=== PATIENT | female | born 1985 | race Caucasian/White ===

== ENCOUNTER 2017-04-07 16:54 | Inpatient (IN) | payer MEDICAID ==
[2017-04-07 16:55] VITALS: BMI 66.9
[2017-04-07] MEDS ORDERED: Albuterol-Ipratrop 3 mg / 0.5 (3 ml) UD INH STA (17:15)
[2017-04-07 17:49] LABS: CHLORIDE 97 mmol/L (98-107); SODIUM 134 mmol/L (132-148)
[2017-04-07 17:50] LABS: POTASSIUM 4.4 mmol/L (3.6-5.2)
[2017-04-07 17:52] LABS: ALB/GLOB RATIO 1.1 (1.0-2.1); ALKALINE PHOSPHATASE 57 U/L (38-126); ALT/SGPT 32 U/L (9-52); AST/SGOT 30 U/L (14-36); BILIRUBIN,TOTAL 0.8 mg/dL (0.2-1.3); BLOOD UREA NITROGEN 7 mg/dL (7-17); CARBON DIOXIDE 27 mmol/L (22-30); GFR AFRICAN-AMERICAN > 60; GLUCOSE,RANDOM 92 mg/dL (65-105); TOTAL PROTEIN 7.9 g/dL (6.3-8.3)
[2017-04-07] MEDS ORDERED: Albuterol-Ipratrop 3 mg / 0.5 (3 ml) UD ONE ×2 (18:02→18:55)
[2017-04-07] MEDS ORDERED: Magnesium Sulfate 1 gm in D5W 2 GM/200 ML BAG IVPB ONE (18:05)
[2017-04-07] MEDS: Magnesium Sulfate 1 gm in D5W 1 GM/100 ML BAG IVPB SCH ×2 (18:18→18:19)
[2017-04-07] MEDS ORDERED: Albuterol 0.083% Inhal Sol (2.5 mg/3 mL) UD INH STA (18:34)
[2017-04-07 18:42] LABS: BASO # 0.1 K/uL (0.0-0.2); BASO % 0.8 % (0.0-2.0); EOS # 0.3 K/uL (0.0-0.7); EOS % 3.7 % (0.0-4.0); HEMATOCRIT 32.1 % (34.0-47.0); LYMPH # 1.6 K/uL (1.0-4.3); LYMPH % 20.7 % (20.0-40.0); MEAN CELL VOLUME 78.6 fL (81.0-99.0); MEAN CORPUSCULAR HEMOGLOBIN 24.9 pg (27.0-31.0); MEAN CORPUSCULAR HGB CONC 31.7 g/dL (33.0-37.0); MEAN PLATELET VOLUME 8.4 fL (7.2-11.7); MONO # 0.6 K/uL (0.0-0.8); MONO % 7.7 % (0.0-10.0); RED CELL DISTRIBUTION WIDTH 16.7 % (11.5-14.5); WHITE BLOOD COUNT 7.5 K/uL (4.8-10.8)
--- NOTE | 2017-04-07 18:46 | RAD ---
PROCEDURE: CHEST RADIOGRAPH, 1 VIEW HISTORY: SOB COMPARISON: None available. FINDINGS: LUNGS: Evaluation limited due to patient body habitus. No infiltrate. PLEURA: No pneumothorax or pleural fluid seen. CARDIOVASCULAR: Normal. OSSEOUS STRUCTURES: No significant abnormalities. VISUALIZED UPPER ABDOMEN: Normal. OTHER FINDINGS: None. IMPRESSION: Normal limited examination.
--- NOTE | 2017-04-07 19:02 | C.PDOC ---
History Of Present Illness 31 y/o female, with PMHx of asthma, presents to ED for evaluation of persistent dry cough, and shortness of breath for the last 2 days. Notes using Albuterol treatment at home with minimal relief. Notes she was last admitted for asthma 1 year ago. No history of intubation. Denies chest pain, headache, fever, chills, back pain, nausea, vomiting, diarrhea, abdominal pain, lower extremity pain/ swelling, or recent travel. Chief Complaint (Nursing): Respiratory Distress History Per: Patient History/Exam Limitations: no limitations Onset/Duration Of Symptoms: Days (2) Current Symptoms Are (Timing): Still Present Exacerbating Factor(s): Coughing Current Respiratory Medications: See Home Med List Associated Symptoms: denies: Fever, Chills, Sweating, Chest Pain, Bloody Cough, Heart Racing, Leg/Calf Pain, Ankle/Leg Swelling, Dizziness, Light-headedness, Anxiety, Tingling In Hands Or Face, Musle Spasms In Hands Or Feet Recent travel outside of the [place]: No Additional History Per: Patient Past Medical History Reviewed: Historical Data, Nursing Documentation, Vital Signs Vital Signs: Last Vital Signs Temp 98.9 F 04/07/17 23:35 Pulse 108 H 04/08/17 12:14 Resp 20 04/07/17 23:35 BP 135/78 04/07/17 23:35 Pulse Ox 93 L 04/07/17 23:35 - Medical History PMH: Asthma, Depression, HTN Denies: Diabetes, Hepatitis, HIV, Chronic Kidney Disease, Seizures, Sexually Transmitted Disease - [facility] Procedures GROUP PSYCHOTHERAPY (02/22/16) INDIVIDUAL PSYCHOTHERAPY, SUPPORTIVE (02/22/16) INTRODUCTION OF SERUM/TOX/VACCINE INTO MUSCLE, PERC APPROACH (10/31/15) MEDICATION MANAGEMENT (02/22/16) Family History: States: Unknown Family Hx - Social History Hx Tobacco Use: No Hx Alcohol Use: No Hx Substance Use: No - Immunization History Hx Tetanus Toxoid Vaccination: No Hx Influenza Vaccination: No Hx Pneumococcal Vaccination: Yes Review Of Systems Except As Marked, All Systems Reviewed And Found Negative. Constitutional: Negative for: Fever, Chills Cardiovascular: Negative for: Chest Pain, Palpitations, Edema, Light Headedness Respiratory: Positive for: Cough, Shortness of Breath. Negative for: Hemoptysis , Sputum Gastrointestinal: Negative for: Nausea, Vomiting, Abdominal Pain Neurological: Negative for: Headache, Dizziness Physical Exam - Physical Exam Appears: Non-toxic, No Acute Distress, Other (morbidly obese) Skin: Normal Color, Warm, Dry Head: Atraumatic, Normacephalic Eye(s): bilateral: Normal Inspection Oral Mucosa: Moist Neck: Normal ROM, Supple Cardiovascular: Rhythm Regular, No Murmur Respiratory: Decreased Breath Sounds (mildly diminished breath sounds), No Rales , No Rhonchi, No Wheezing, Other (dry cough) Gastrointestinal/Abdominal: Soft, No Tenderness Extremity: Normal ROM, No Pedal Edema Neurological/Psych: Oriented x3, Normal Speech, Normal Cognition ED Course And Treatment - Laboratory Results Result Diagrams: 04/07/17 18:37 04/07/17 17:34 O2 Sat by Pulse Oximetry: 99 (RA) Pulse Ox Interpretation: Normal Progress Note: Blood work, EKG, CXR ordered and reviewed. Patient was given Solu -Medrol, Magnesium Sulfate, and Albuterol treatment. Case discussed with Dr. Vijaya Buchanan, reservations sales supervisor medicine, who accepts pt for telemetry. Disposition - Disposition Disposition: HOSPITALIZED Disposition Time: 18:20 Condition: STABLE - Clinical Impression Clinical Impression: Exacerbation of asthma - Scribe Statement The provider has reviewed the documentation as recorded by the Scribe Marcelle Buchanan All medical record entries made by the Scribe were at my direction and personally dictated by me. I have reviewed the chart and agree that the record accurately reflects my personal performance of the history, physical exam, medical decision making, and the department course for this patient. I have also personally directed, reviewed, and agree with the discharge instructions and disposition.
[2017-04-07] MEDS: MethylPREDNISolone 40 mg Vial IVP SCH (21:53)
[2017-04-07] MEDS: Azithromycin 500 MG in Sodium Chloride 0.9% 250 ML IVPB SCH (22:29)
[2017-04-07] MEDS: guaiFENesin DM 200 mg-20 mg/10 ml UD PO PRN ×2 (22:37→22:56)
--- NOTE | 2017-04-07 23:25 | CP.PCM.HP ---
Past Patient History - Infectious Disease Hx of Infectious Diseases: None - Past Medical History & Family History Past Medical History?: No - Past Social History Smoking Status: Light Smoker < 10 Cigarettes Daily - CARDIAC Hx Hypertension: Yes - PULMONARY Hx Asthma: Yes - NEUROLOGICAL Hx Seizures: No - HEENT Other/Comment: wears glasses to see - RENAL Hx Chronic Kidney Disease: No - ENDOCRINE/METABOLIC Hx Endocrine Disorders: No - HEMATOLOGICAL/ONCOLOGICAL Hx Human Immunodeficiency Virus (HIV): No - INTEGUMENTARY Hx Dermatological Problems: No - MUSCULOSKELETAL/RHEUMATOLOGICAL Hx Musculoskeletal Disorders: No Hx Falls: No - GASTROINTESTINAL Hx Gastrointestinal Disorders: No - GENITOURINARY/GYNECOLOGICAL Hx Sexually Transmitted Disorders: No - PSYCHIATRIC Hx Depression: Yes Hx Substance Use: No - SURGICAL HISTORY Hx Surgeries: No - ANESTHESIA Hx Anesthesia: No Meds Allergies/Adverse Reactions: Allergies Allergy/AdvReac Type Severity Reaction Status Date / Time banana Allergy Intermediate URTICARIA Verified 06/29/16 14:39 ORANGE Allergy Intermediate URTICARIA Verified 06/29/16 14:39 shrimp Allergy RASH Verified 02/22/16 11:54 watermelon Allergy RASH Verified 02/22/16 11:54 SEAFOOD Allergy Severe ANAPHYLAXIS Uncoded 06/29/16 14:39 Results - Vital Signs Recent Vital Signs: Last Vital Signs Temp 98.9 F 04/07/17 20:54 Pulse 112 H 04/07/17 20:54 Resp 18 04/07/17 20:54 BP 173/90 H 04/07/17 20:54 Pulse Ox 100 04/07/17 20:54 - Labs Result Diagrams: 04/07/17 18:37 04/07/17 17:34 Labs: Laboratory Results - last 24 hr 04/07/17 04/07/17 04/07/17 17:34 17:38 18:37 WBC 7.5 RBC 4.08 Hgb 10.2 L Hct 32.1 L MCV 78.6 L D MCH 24.9 L MCHC 31.7 L RDW 16.7 H Plt Count 300 MPV 8.4 Neut % (Auto) 67.1 Lymph % (Auto) 20.7 [place] % (Auto) 7.7 Eos % (Auto) 3.7 Baso % (Auto) 0.8 Neut # 5.0 Lymph # 1.6 [place] # 0.6 Eos # 0.3 Baso # 0.1 Sodium 134 Potassium 4.4 Chloride 97 L Carbon Dioxide 27 Anion Gap 14 BUN 7 Creatinine 0.7 Est GFR ( Amer) > 60 Est GFR (Non-Af Amer) > 60 Random Glucose 92 Calcium 9.0 Total Bilirubin 0.8 AST 30 ALT 32 Alkaline Phosphatase 57 NT-Pro-B Natriuret Pep 92.4 Total Protein 7.9 Albumin 4.2 Globulin 3.7 Albumin/Globulin Ratio 1.1 Influenza Typ A,B (EIA) Negative for flu a/b
[2017-04-08] MEDS: Albuterol-Ipratrop 3 mg / 0.5 (3 ml) UD INH SCH ×4 (01:05→19:05)
[2017-04-08] MEDS: MethylPREDNISolone 40 mg Vial IVP SCH ×3 (05:40→21:34)
[2017-04-08] MEDS: guaiFENesin DM 200 mg-20 mg/10 ml UD PO PRN (05:43)
[2017-04-08] MEDS ORDERED: Albuterol-Ipratrop 3 mg / 0.5 (3 ml) UD INH STA (06:08)
[2017-04-08] MEDS: Fluticasone-Salmeterol 250-50mcg Diskus INH SCH ×2 (08:53→19:05)
[2017-04-08] MEDS: Pantoprazole 40 mg EC Tab PO SCH (10:34)
[2017-04-08] MEDS: Enoxaparin 40 mg Syringe SC SCH (10:34)
--- NOTE | 2017-04-08 15:48 | CP.PCM.CON ---
Past Patient History - Infectious Disease Hx of Infectious Diseases: None - Past Medical History & Family History Past Medical History?: No - Past Social History Smoking Status: Light Smoker < 10 Cigarettes Daily - CARDIAC Hx Hypertension: Yes - PULMONARY Hx Asthma: Yes - NEUROLOGICAL Hx Seizures: No - HEENT Other/Comment: wears glasses to see - RENAL Hx Chronic Kidney Disease: No - ENDOCRINE/METABOLIC Hx Endocrine Disorders: No - HEMATOLOGICAL/ONCOLOGICAL Hx Human Immunodeficiency Virus (HIV): No - INTEGUMENTARY Hx Dermatological Problems: No - MUSCULOSKELETAL/RHEUMATOLOGICAL Hx Musculoskeletal Disorders: No Hx Falls: No - GASTROINTESTINAL Hx Gastrointestinal Disorders: No - GENITOURINARY/GYNECOLOGICAL Hx Sexually Transmitted Disorders: No - PSYCHIATRIC Hx Depression: Yes Hx Substance Use: No - SURGICAL HISTORY Hx Surgeries: No - ANESTHESIA Hx Anesthesia: No Meds Allergies/Adverse Reactions: Allergies Allergy/AdvReac Type Severity Reaction Status Date / Time banana Allergy Intermediate URTICARIA Verified 06/29/16 14:39 ORANGE Allergy Intermediate URTICARIA Verified 06/29/16 14:39 shrimp Allergy RASH Verified 02/22/16 11:54 watermelon Allergy RASH Verified 02/22/16 11:54 SEAFOOD Allergy Severe ANAPHYLAXIS Uncoded 06/29/16 14:39 - Medications Medications: Current Medications Albuterol/Ipratropium (Duoneb 3 Mg/0.5 Mg (3 Ml) Ud) 3 ml INH RQ6 [facility] Last Admin: 04/08/17 13:33 Dose: 3 ml Amlodipine Besylate (Norvasc) 10 mg PO DAILY [facility] Last Admin: 04/08/17 10:34 Dose: 10 mg Enoxaparin Sodium (Lovenox) 40 mg SC DAILY [facility] Last Admin: 04/08/17 10:34 Dose: Not Given Guaifenesin/Dextromethorphan (Robitussin Dm) 10 ml PO Q4H PRN PRN Reason: Cough and congestion Last Admin: 04/08/17 05:43 Dose: 10 ml Hydrochlorothiazide (Microzide) 12.5 mg PO DAILY [facility] Last Admin: 04/08/17 10:34 Dose: 12.5 mg Azithromycin 500 mg/ Sodium (Chloride) 250 mls @ 250 mls/hr IVPB Q24H [facility] Last Admin: 04/07/17 22:29 Dose: 250 mls/hr Ceftriaxone Sodium 1 gm/ (Sodium Chloride) 100 mls @ 100 mls/hr IVPB Q24H [facility] Last Admin: 04/07/17 22:29 Dose: 100 mls/hr Lisinopril (Zestril) 20 mg PO DAILY [facility] Last Admin: 04/08/17 10:34 Dose: 20 mg Methylprednisolone (Solu-Medrol) 60 mg IVP Q8 [facility] Last Admin: 04/08/17 13:31 Dose: 60 mg Montelukast Sodium (Singulair) 10 mg PO HS [facility] Last Admin: 04/07/17 21:53 Dose: 10 mg Pantoprazole Sodium (Protonix Ec Tab) 40 mg PO DAILY [facility] Last Admin: 04/08/17 10:34 Dose: 40 mg Fluticasone/Salmeterol (Advair Diskus 250/50) 1 puff INH RQ12 [facility] Last Admin: 04/08/17 08:53 Dose: 1 puff Results - Vital Signs Recent Vital Signs: Last Vital Signs Temp 98.9 F 04/07/17 23:35 Pulse 108 H 04/08/17 12:14 Resp 20 04/07/17 23:35 BP 135/78 04/07/17 23:35 Pulse Ox 99 04/08/17 12:36 - Labs Result Diagrams: 04/07/17 18:37 04/07/17 17:34 Labs: Laboratory Results - last 24 hr 04/07/17 04/07/17 04/07/17 17:34 17:38 18:37 WBC 7.5 RBC 4.08 Hgb 10.2 L Hct 32.1 L MCV 78.6 L D MCH 24.9 L MCHC 31.7 L RDW 16.7 H Plt Count 300 MPV 8.4 Neut % (Auto) 67.1 Lymph % (Auto) 20.7 [place] % (Auto) 7.7 Eos % (Auto) 3.7 Baso % (Auto) 0.8 Neut # 5.0 Lymph # 1.6 [place] # 0.6 Eos # 0.3 Baso # 0.1 Sodium 134 Potassium 4.4 Chloride 97 L Carbon Dioxide 27 Anion Gap 14 BUN 7 Creatinine 0.7 Est GFR ( Amer) > 60 Est GFR (Non-Af Amer) > 60 Random Glucose 92 Calcium 9.0 Total Bilirubin 0.8 AST 30 ALT 32 Alkaline Phosphatase 57 NT-Pro-B Natriuret Pep 92.4 Total Protein 7.9 Albumin 4.2 Globulin 3.7 Albumin/Globulin Ratio 1.1 Influenza Typ A,B (EIA) Negative for flu a/b
--- NOTE | 2017-04-08 19:00 | CP.PCM.PN ---
Subjective - Date & Time of Evaluation Date of Evaluation: 04/08/17 Time of Evaluation: 11:40 - Subjective Subjective: clinically same Objective - Vital Signs/Intake and Output Vital Signs (last 24 hours): Temp Pulse Resp BP Pulse Ox 98.2 F 112 H 24 128/79 97 04/08/17 15:31 04/08/17 15:31 04/08/17 15:31 04/08/17 15:31 04/08/17 15:31 Intake and Output: 04/08/17 04/09/17 18:59 06:59 Intake Total 350 Balance 350 - Medications Medications: Current Medications Albuterol/Ipratropium (Duoneb 3 Mg/0.5 Mg (3 Ml) Ud) 3 ml INH RQ6 [facility] Last Admin: 04/08/17 13:33 Dose: 3 ml Amlodipine Besylate (Norvasc) 10 mg PO DAILY [facility] Last Admin: 04/08/17 10:34 Dose: 10 mg Enoxaparin Sodium (Lovenox) 40 mg SC DAILY [facility] Last Admin: 04/08/17 10:34 Dose: Not Given Guaifenesin/Dextromethorphan (Robitussin Dm) 10 ml PO Q4H PRN PRN Reason: Cough and congestion Last Admin: 04/08/17 05:43 Dose: 10 ml Hydrochlorothiazide (Microzide) 12.5 mg PO DAILY [facility] Last Admin: 04/08/17 10:34 Dose: 12.5 mg Azithromycin 500 mg/ Sodium (Chloride) 250 mls @ 250 mls/hr IVPB Q24H [facility] Last Admin: 04/07/17 22:29 Dose: 250 mls/hr Ceftriaxone Sodium 1 gm/ (Sodium Chloride) 100 mls @ 100 mls/hr IVPB Q24H [facility] Last Admin: 04/07/17 22:29 Dose: 100 mls/hr Lisinopril (Zestril) 20 mg PO DAILY [facility] Last Admin: 04/08/17 10:34 Dose: 20 mg Methylprednisolone (Solu-Medrol) 60 mg IVP Q8 [facility] Last Admin: 04/08/17 13:31 Dose: 60 mg Montelukast Sodium (Singulair) 10 mg PO HS [facility] Last Admin: 04/07/17 21:53 Dose: 10 mg Pantoprazole Sodium (Protonix Ec Tab) 40 mg PO DAILY [facility] Last Admin: 04/08/17 10:34 Dose: 40 mg Fluticasone/Salmeterol (Advair Diskus 250/50) 1 puff INH RQ12 [facility] Last Admin: 04/08/17 08:53 Dose: 1 puff - Labs Labs: 04/07/17 18:37 04/07/17 17:34
[2017-04-08] MEDS: Azithromycin 500 MG in Sodium Chloride 0.9% 250 ML IVPB SCH (21:34)
[2017-04-09] MEDS: Albuterol-Ipratrop 3 mg / 0.5 (3 ml) UD INH SCH ×4 (03:07→19:07)
[2017-04-09] MEDS: MethylPREDNISolone 40 mg Vial IVP SCH ×3 (07:00→21:04)
[2017-04-09] MEDS: Fluticasone-Salmeterol 250-50mcg Diskus INH SCH ×2 (08:34→19:09)
[2017-04-09] MEDS: Enoxaparin 40 mg Syringe SC SCH (09:46)
[2017-04-09] MEDS: Pantoprazole 40 mg EC Tab PO SCH (09:46)
[2017-04-09] MEDS: guaiFENesin DM 200 mg-20 mg/10 ml UD PO PRN (09:46)
--- NOTE | 2017-04-09 19:40 | CP.PCM.PN ---
Subjective - Date & Time of Evaluation Date of Evaluation: 04/09/17 Time of Evaluation: 10:40 - Subjective Subjective: clinically same Objective - Vital Signs/Intake and Output Vital Signs (last 24 hours): Temp Pulse Resp BP Pulse Ox 98.3 F 107 H 22 164/78 H 98 04/09/17 15:23 04/09/17 16:00 04/09/17 15:23 04/09/17 15:23 04/09/17 15:23 Intake and Output: 04/09/17 04/10/17 18:59 06:59 Intake Total 350 Balance 350 - Medications Medications: Current Medications Albuterol/Ipratropium (Duoneb 3 Mg/0.5 Mg (3 Ml) Ud) 3 ml INH RQ6 [facility] Last Admin: 04/09/17 19:07 Dose: 3 ml Amlodipine Besylate (Norvasc) 10 mg PO DAILY [facility] Last Admin: 04/09/17 09:46 Dose: 10 mg Enoxaparin Sodium (Lovenox) 40 mg SC DAILY [facility] Last Admin: 04/09/17 09:46 Dose: 40 mg Guaifenesin/Dextromethorphan (Robitussin Dm) 10 ml PO Q4H PRN PRN Reason: Cough and congestion Last Admin: 04/09/17 09:46 Dose: 10 ml Hydrochlorothiazide (Microzide) 12.5 mg PO DAILY [facility] Last Admin: 04/09/17 09:46 Dose: 12.5 mg Azithromycin 500 mg/ Sodium (Chloride) 250 mls @ 250 mls/hr IVPB Q24H [facility] Last Admin: 04/08/17 21:34 Dose: 250 mls/hr Ceftriaxone Sodium 1 gm/ (Sodium Chloride) 100 mls @ 100 mls/hr IVPB Q24H [facility] Last Admin: 04/08/17 22:49 Dose: 100 mls/hr Lisinopril (Zestril) 20 mg PO DAILY [facility] Last Admin: 04/09/17 09:46 Dose: 20 mg Methylprednisolone (Solu-Medrol) 60 mg IVP Q8 [facility] Last Admin: 04/09/17 13:30 Dose: 60 mg Metoprolol Tartrate (Lopressor) 25 mg PO BID [facility] Montelukast Sodium (Singulair) 10 mg PO HS [facility] Last Admin: 04/08/17 21:35 Dose: 10 mg Pantoprazole Sodium (Protonix Ec Tab) 40 mg PO DAILY [facility] Last Admin: 04/09/17 09:46 Dose: 40 mg Fluticasone/Salmeterol (Advair Diskus 250/50) 1 puff INH RQ12 [facility] Last Admin: 04/09/17 19:09 Dose: Not Given - Labs Labs: 04/07/17 18:37 04/07/17 17:34 - Constitutional Appears: Well - Head Exam Head Exam: ATRAUMATIC, NORMAL INSPECTION, NORMOCEPHALIC - Eye Exam Eye Exam: EOMI, Normal appearance, PERRL Pupil Exam: NORMAL ACCOMODATION, PERRL - ENT Exam ENT Exam: Mucous Membranes Moist, Normal Exam - Neck Exam Neck Exam: Full ROM, Normal Inspection. absent: Lymphadenopathy - Respiratory Exam Respiratory Exam: Decreased Breath Sounds - Cardiovascular Exam Cardiovascular Exam: REGULAR RHYTHM, +S1, +S2 - GI/Abdominal Exam GI & Abdominal Exam: Soft, Diminished Bowel Sounds - Rectal Exam Rectal Exam: Deferred
--- NOTE | 2017-04-09 19:46 | CP.PCM.PN ---
Subjective - Date & Time of Evaluation Date of Evaluation: 04/09/17 Time of Evaluation: 19:46 Objective - Vital Signs/Intake and Output Vital Signs (last 24 hours): Temp Pulse Resp BP Pulse Ox 98.3 F 107 H 22 164/78 H 98 04/09/17 15:23 04/09/17 16:00 04/09/17 15:23 04/09/17 15:23 04/09/17 15:23 Intake and Output: 04/09/17 04/10/17 18:59 06:59 Intake Total 350 Balance 350 - Medications Medications: Current Medications Albuterol/Ipratropium (Duoneb 3 Mg/0.5 Mg (3 Ml) Ud) 3 ml INH RQ6 [facility] Last Admin: 04/09/17 19:07 Dose: 3 ml Amlodipine Besylate (Norvasc) 10 mg PO DAILY [facility] Last Admin: 04/09/17 09:46 Dose: 10 mg Enoxaparin Sodium (Lovenox) 40 mg SC DAILY [facility] Last Admin: 04/09/17 09:46 Dose: 40 mg Guaifenesin/Dextromethorphan (Robitussin Dm) 10 ml PO Q4H PRN PRN Reason: Cough and congestion Last Admin: 04/09/17 09:46 Dose: 10 ml Hydrochlorothiazide (Microzide) 12.5 mg PO DAILY [facility] Last Admin: 04/09/17 09:46 Dose: 12.5 mg Azithromycin 500 mg/ Sodium (Chloride) 250 mls @ 250 mls/hr IVPB Q24H [facility] Last Admin: 04/08/17 21:34 Dose: 250 mls/hr Ceftriaxone Sodium 1 gm/ (Sodium Chloride) 100 mls @ 100 mls/hr IVPB Q24H [facility] Last Admin: 04/08/17 22:49 Dose: 100 mls/hr Lisinopril (Zestril) 20 mg PO DAILY [facility] Last Admin: 04/09/17 09:46 Dose: 20 mg Methylprednisolone (Solu-Medrol) 60 mg IVP Q8 [facility] Last Admin: 04/09/17 13:30 Dose: 60 mg Metoprolol Tartrate (Lopressor) 25 mg PO BID [facility] Montelukast Sodium (Singulair) 10 mg PO HS [facility] Last Admin: 04/08/17 21:35 Dose: 10 mg Pantoprazole Sodium (Protonix Ec Tab) 40 mg PO DAILY [facility] Last Admin: 04/09/17 09:46 Dose: 40 mg Fluticasone/Salmeterol (Advair Diskus 250/50) 1 puff INH RQ12 [facility] Last Admin: 04/09/17 19:09 Dose: Not Given - Labs Labs: 04/07/17 18:37 04/07/17 17:34
[2017-04-09 20:13] LABS: BASO # 0.1 K/uL (0.0-0.2); BASO % 0.5 % (0.0-2.0); EOS % 0.2 % (0.0-4.0); HEMATOCRIT 34.9 % (34.0-47.0); LYMPH # 1.8 K/uL (1.0-4.3); MEAN CELL VOLUME 78.6 fL (81.0-99.0); MEAN CORPUSCULAR HEMOGLOBIN 24.7 pg (27.0-31.0); MEAN CORPUSCULAR HGB CONC 31.4 g/dL (33.0-37.0); MEAN PLATELET VOLUME 8.8 fL (7.2-11.7); MONO # 0.6 K/uL (0.0-0.8); MONO % 3.2 % (0.0-10.0); PLATELET COUNT 377 K/uL (130-400); RED CELL DISTRIBUTION WIDTH 16.8 % (11.5-14.5); WHITE BLOOD COUNT 19.4 K/uL (4.8-10.8)
[2017-04-09 20:22] LABS: CHLORIDE 96 mmol/L (98-107); POTASSIUM 4.1 mmol/L (3.6-5.2); SODIUM 135 mmol/L (132-148)
[2017-04-09 20:24] LABS: BILIRUBIN,TOTAL 0.4 mg/dL (0.2-1.3); GFR AFRICAN-AMERICAN > 60
[2017-04-09 20:25] LABS: ALKALINE PHOSPHATASE 64 U/L (38-126); ALT/SGPT 40 U/L (9-52); AST/SGOT 24 U/L (14-36); BLOOD UREA NITROGEN 12 mg/dL (7-17); CALCIUM 9.6 mg/dl (8.6-10.4); CARBON DIOXIDE 30 mmol/L (22-30); GLUCOSE,RANDOM 126 mg/dL (65-105); TOTAL PROTEIN 8.6 g/dL (6.3-8.3)
[2017-04-09] MEDS: Azithromycin 500 MG in Sodium Chloride 0.9% 250 ML IVPB SCH (21:03)
[2017-04-09 21:18] LABS: NEUTROPHIL 90 % (50-75); TOTAL CELLS COUNTED 100
[2017-04-10] MEDS: Albuterol-Ipratrop 3 mg / 0.5 (3 ml) UD INH SCH ×4 (01:10→19:51)
[2017-04-10] MEDS: MethylPREDNISolone 40 mg Vial IVP SCH ×3 (05:34→22:03)
[2017-04-10] MEDS: Fluticasone-Salmeterol 250-50mcg Diskus INH SCH ×2 (09:37→19:51)
[2017-04-10] MEDS: guaiFENesin DM 200 mg-20 mg/10 ml UD PO PRN (10:32)
[2017-04-10] MEDS: Pantoprazole 40 mg EC Tab PO SCH (10:33)
[2017-04-10] MEDS: Enoxaparin 40 mg Syringe SC SCH (10:33)
--- NOTE | 2017-04-10 18:13 | CARD ---
APPROVED REPORT EXAM: Two-dimensional and M-mode echocardiogram with Doppler and color Doppler. Other Information Quality : TDSRhythm : INDICATION Hypertension/HCVD SOB RISK FACTORS Hypertension Mitral Valve MV E [id number]/sMV A Wsdkbujc77.3cm/sE/A ratio1.2 TDI E/Lateral E'0.0E/Medial E'0.0 <Conclusion> SUBOPTIMAL STUDY DUE TO POOR ACOUSTIC WINDOWS The left ventricular systolic and diastolic function appear grossly preserved. Grossly normal left atrial size. Grossly normal mitral valve.
--- NOTE | 2017-04-10 22:04 | CP.PCM.PN ---
Subjective - Date & Time of Evaluation Date of Evaluation: 04/10/17 Objective - Vital Signs/Intake and Output Vital Signs (last 24 hours): Temp Pulse Resp BP Pulse Ox 98.4 F 86 22 159/91 H 97 04/10/17 15:19 04/10/17 15:19 04/10/17 15:19 04/10/17 18:07 04/10/17 15:19 Intake and Output: 04/10/17 04/11/17 18:59 06:59 Intake Total 1000 Balance 1000 - Medications Medications: Current Medications Albuterol/Ipratropium (Duoneb 3 Mg/0.5 Mg (3 Ml) Ud) 3 ml INH RQ6 [facility] Last Admin: 04/10/17 19:51 Dose: 3 ml Amlodipine Besylate (Norvasc) 10 mg PO DAILY [facility] Last Admin: 04/10/17 10:33 Dose: 10 mg Enoxaparin Sodium (Lovenox) 40 mg SC DAILY [facility] Last Admin: 04/10/17 10:33 Dose: 40 mg Guaifenesin/Dextromethorphan (Robitussin Dm) 10 ml PO Q4H PRN PRN Reason: Cough and congestion Last Admin: 04/10/17 10:32 Dose: 10 ml Hydrochlorothiazide (Microzide) 12.5 mg PO DAILY [facility] Last Admin: 04/10/17 10:32 Dose: 12.5 mg Azithromycin 500 mg/ Sodium (Chloride) 250 mls @ 250 mls/hr IVPB Q24H [facility] Last Admin: 04/09/17 21:03 Dose: 250 mls/hr Ceftriaxone Sodium 1 gm/ (Sodium Chloride) 100 mls @ 100 mls/hr IVPB Q24H [facility] Last Admin: 04/09/17 22:30 Dose: 100 mls/hr Lisinopril (Zestril) 20 mg PO DAILY [facility] Last Admin: 04/10/17 10:32 Dose: 20 mg Methylprednisolone (Solu-Medrol) 60 mg IVP Q8 [facility] Last Admin: 04/10/17 22:03 Dose: 60 mg Metoprolol Tartrate (Lopressor) 25 mg PO BID [facility] Last Admin: 04/10/17 18:07 Dose: 25 mg Montelukast Sodium (Singulair) 10 mg PO HS [facility] Last Admin: 04/10/17 22:03 Dose: 10 mg Pantoprazole Sodium (Protonix Ec Tab) 40 mg PO DAILY [facility] Last Admin: 04/10/17 10:33 Dose: 40 mg Fluticasone/Salmeterol (Advair Diskus 250/50) 1 puff INH RQ12 [facility] Last Admin: 04/10/17 19:51 Dose: 1 puff - Labs Labs: 04/09/17 20:04 04/09/17 20:04
[2017-04-10] MEDS: Azithromycin 500 MG in Sodium Chloride 0.9% 250 ML IVPB SCH (23:00)
[2017-04-11] MEDS: Albuterol-Ipratrop 3 mg / 0.5 (3 ml) UD INH SCH ×2 (01:04→07:55)
[2017-04-11 01:32] VITALS: RESP 20
--- NOTE | 2017-04-11 02:41 | CON ---
DATE: REASON FOR CONSULTATION: Shortness of breath and nonsustained ventricular tachycardia. HISTORY OF PRESENT ILLNESS: The patient is 31-year-old, morbidly obese, female who is about 340 pounds according to the patient who has history of bronchial asthma. The patient is a smoker. She presents because of shortness of breath and leg swelling. The patient was noted to have short run of nonsustained ventricular tachycardia on the monitor last night. The patient does not recall any symptoms; however, the patient does have history of palpitation in the past and reported syncopal episode few months ago. The patient is unaware of any prior cardiac history. SOCIAL HISTORY: The patient is a smoker. MEDICATIONS: The patient home medication include albuterol, Haldol, Singulair, Sinequan, Desyrel, hydrochlorothiazide, Zestril, Zoloft, Cogentin and naproxen. HOSPITAL MEDICATIONS: Include Advair one puff twice a day, Zithromax 500 mg intravenously daily, Rocephin 1 gm intravenously daily, albuterol inhaler q. 6 hours p.r.n., Lopressor 25 mg twice a day, it was started by me last night, Lovenox 40 mg subcutaneous once a day, hydrochlorothiazide 12.5 mg once a day, Norvasc 10 mg once a day, Solu-Medrol 60 mg intravenously q. 8 hours, Zestril 20 mg once a day. REVIEW OF SYSTEMS: No nausea or vomiting. No fever or chills. PHYSICAL EXAMINATION: GENERAL: The patient is a young middle age female who does not appear to be in any distress. VITAL SIGNS: Blood pressure 165/72, heart rate 93, temperature 97.7, and respirations 22. HEENT: Head is normocephalic. CHEST: Bilateral rhonchi. HEART: S1 and S2 regular and distant. ABDOMEN: Soft. EXTREMITIES: 1+ pitting edema. LABORATORY DATA: Urine drug screen is negative. Urine test is negative. SMA-7 is within normal limits except for glucose 126 and chloride . One set of troponin is negative. Hemoglobin and hematocrit 11 and 34.9, white count 19.4 and platelet count 337,000. EKG is not accessible on [employer] database and will be reviewed on database. Chest x-ray revealed cardiomegaly with mild congestive heart failure. ASSESSMENT: 1. Exacerbation of bronchial asthma. 2. Rule out congestive heart failure. 3. Nonsustained ventricular tachycardia. 4. Morbid obesity. RECOMMENDATIONS: Continue current Lopressor and subcutaneous Lovenox. I will review the echocardiogram study performed today. Aidan Becerril MD
[2017-04-11] MEDS: MethylPREDNISolone 40 mg Vial IVP SCH ×2 (05:47→13:39)
[2017-04-11 07:54] VITALS: TEMP 98; O2SAT 99
[2017-04-11] MEDS: Fluticasone-Salmeterol 250-50mcg Diskus INH SCH (07:55)
[2017-04-11] MEDS: Pantoprazole 40 mg EC Tab PO SCH (10:02)
[2017-04-11 10:03] VITALS: BP 141/89
[2017-04-11] MEDS: Enoxaparin 40 mg Syringe SC SCH (10:03)
[2017-04-11] MEDS: guaiFENesin DM 200 mg-20 mg/10 ml UD PO PRN (10:04)
--- NOTE | 2017-04-11 12:06 | CP.PCM.PN ---
Subjective - Date & Time of Evaluation Date of Evaluation: 04/11/17 Time of Evaluation: 12:06 Objective - Vital Signs/Intake and Output Vital Signs (last 24 hours): Temp Pulse Resp BP Pulse Ox 98 F 83 20 141/89 99 04/11/17 07:00 04/11/17 07:06 04/11/17 07:00 04/11/17 10:02 04/11/17 07:00 Intake and Output: 04/11/17 04/11/17 06:59 18:59 Intake Total 500 Balance 500 - Medications Medications: Current Medications Albuterol/Ipratropium (Duoneb 3 Mg/0.5 Mg (3 Ml) Ud) 3 ml INH RQ6 [facility] Last Admin: 04/11/17 07:55 Dose: Not Given Amlodipine Besylate (Norvasc) 10 mg PO DAILY [facility] Last Admin: 04/11/17 10:02 Dose: 10 mg Enoxaparin Sodium (Lovenox) 40 mg SC DAILY [facility] Last Admin: 04/11/17 10:03 Dose: 40 mg Guaifenesin/Dextromethorphan (Robitussin Dm) 10 ml PO Q4H PRN PRN Reason: Cough and congestion Last Admin: 04/11/17 10:04 Dose: 10 ml Hydrochlorothiazide (Microzide) 12.5 mg PO DAILY [facility] Last Admin: 04/11/17 10:02 Dose: 12.5 mg Azithromycin 500 mg/ Sodium (Chloride) 250 mls @ 250 mls/hr IVPB Q24H [facility] Last Admin: 04/10/17 23:00 Dose: 250 mls/hr Ceftriaxone Sodium 1 gm/ (Sodium Chloride) 100 mls @ 100 mls/hr IVPB Q24H [facility] Last Admin: 04/10/17 22:00 Dose: 100 mls/hr Lisinopril (Zestril) 20 mg PO DAILY [facility] Last Admin: 04/11/17 10:02 Dose: 20 mg Methylprednisolone (Solu-Medrol) 60 mg IVP Q8 [facility] Last Admin: 04/11/17 05:47 Dose: 60 mg Metoprolol Tartrate (Lopressor) 25 mg PO BID [facility] Last Admin: 04/11/17 10:02 Dose: 25 mg Montelukast Sodium (Singulair) 10 mg PO HS [facility] Last Admin: 04/10/17 22:03 Dose: 10 mg Pantoprazole Sodium (Protonix Ec Tab) 40 mg PO DAILY [facility] Last Admin: 04/11/17 10:02 Dose: 40 mg Fluticasone/Salmeterol (Advair Diskus 250/50) 1 puff INH RQ12 [facility] Last Admin: 04/11/17 07:55 Dose: Not Given - Labs Labs: 04/09/17 20:04 04/09/17 20:04
--- NOTE | 2017-04-11 14:52 | PN ---
DATE: SUBJECTIVE: The patient denies any chest pain or shortness of breath. No reported ventricular tachycardia. PHYSICAL EXAMINATION VITAL SIGNS: Blood pressure 141/89, heart rate 83, temperature 98, respiration 20. HEENT: Normocephalic. CHEST: Clear. HEART: S1, S2, regular. EXTREMITIES: Trace edema. ASSESSMENT: Echocardiographic study revealed normal left ventricular systolic and diastolic function and grossly normal left atrial size and grossly normal mitral valve. So far, the EKG has not been interpreted yet and I am still having difficulty accessing for both [facility] and [employer]. RECOMMENDATIONS: The patient should stay until the EKG is reviewed. In the meantime, the patient's Lopressor would be increased to 50 mg twice a day with continuation of hydrochlorothiazide, Norvasc, and Zestril. Aidan Becerril MD
[2017-04-11 15:58] VITALS: PULSE 82
--- NOTE | 2017-04-11 16:28 | CP.PCM.PN ---
Subjective - Date & Time of Evaluation Date of Evaluation: 04/11/17 Time of Evaluation: 16:28 Objective - Vital Signs/Intake and Output Vital Signs (last 24 hours): Temp Pulse Resp BP Pulse Ox 98 F 82 20 141/89 99 04/11/17 07:00 04/11/17 12:00 04/11/17 07:00 04/11/17 10:02 04/11/17 07:00 Intake and Output: 04/11/17 04/11/17 06:59 18:59 Intake Total 500 600 Output Total 0 Balance 500 600 - Medications Medications: Current Medications Albuterol/Ipratropium (Duoneb 3 Mg/0.5 Mg (3 Ml) Ud) 3 ml INH RQ6 [facility] Last Admin: 04/11/17 07:55 Dose: Not Given Amlodipine Besylate (Norvasc) 10 mg PO DAILY [facility] Last Admin: 04/11/17 10:02 Dose: 10 mg Enoxaparin Sodium (Lovenox) 40 mg SC DAILY [facility] Last Admin: 04/11/17 10:03 Dose: 40 mg Guaifenesin/Dextromethorphan (Robitussin Dm) 10 ml PO Q4H PRN PRN Reason: Cough and congestion Last Admin: 04/11/17 10:04 Dose: 10 ml Hydrochlorothiazide (Microzide) 12.5 mg PO DAILY [facility] Last Admin: 04/11/17 10:02 Dose: 12.5 mg Azithromycin 500 mg/ Sodium (Chloride) 250 mls @ 250 mls/hr IVPB Q24H [facility] Last Admin: 04/10/17 23:00 Dose: 250 mls/hr Ceftriaxone Sodium 1 gm/ (Sodium Chloride) 100 mls @ 100 mls/hr IVPB Q24H [facility] Last Admin: 04/10/17 22:00 Dose: 100 mls/hr Lisinopril (Zestril) 20 mg PO DAILY [facility] Last Admin: 04/11/17 10:02 Dose: 20 mg Methylprednisolone (Solu-Medrol) 60 mg IVP Q8 [facility] Last Admin: 04/11/17 13:39 Dose: 60 mg Metoprolol Tartrate (Lopressor) 50 mg PO BID [facility] Montelukast Sodium (Singulair) 10 mg PO HS [facility] Last Admin: 04/10/17 22:03 Dose: 10 mg Pantoprazole Sodium (Protonix Ec Tab) 40 mg PO DAILY [facility] Last Admin: 04/11/17 10:02 Dose: 40 mg Fluticasone/Salmeterol (Advair Diskus 250/50) 1 puff INH RQ12 [facility] Last Admin: 04/11/17 07:55 Dose: Not Given - Labs Labs: 04/09/17 20:04 04/09/17 20:04
--- NOTE | 2017-04-11 18:55 | CARD ---
APPROVED REPORT EKG Measurement Heart [id number] <Conclusion> Sinus tachycardia Otherwise normal.
--- NOTE | 2017-04-11 18:55 | CARD ---
APPROVED REPORT EKG Measurement Heart [id number] <Conclusion> Normal sinus rhythm Normal ECG
== END 2017-04-11 17:45 | disposition home or self-care (01) | DRG 96 ==
LOC: C.ER 16:54 → C.6T 18:33 → OBSVTOIN 04-08 15:36
PROVIDERS: ADMIT Internal Medicine Nephrology; ATTEND Internal Medicine Nephrology
DX: J45.901 Unspecified asthma with (acute) exacerbation (principal); I47.2 Ventricular tachycardia; I10 Essential (primary) hypertension; F17.200 Nicotine dependence, unspecified, uncomplicated; E66.01 Morbid (severe) obesity due to excess calories; Z68.45 Body mass index [BMI] 70 or greater, adult

== ENCOUNTER 2018-11-23 09:01 | Emergency (ER) | payer MEDICAID ==
[2018-11-23 09:07] VITALS: BMI 51.5
[2018-11-23 09:09] VITALS: BP 159/88; PULSE 107; RESP 20; TEMP 99.7; O2SAT 95
--- NOTE | 2018-11-23 11:22 | C.PDOC ---
History Of Present Illness 33 year old female with no pertinent medical problems presents to the ED complaining of cough, sore throat and subjective fever for 3-2 days. Denies any joint pain, rash, nausea, vomiting, ear pain, headache, neck pain, nasal congestion or any other symptoms. Reports she lives in a homeless detention. Denies any other symptoms. Denies recent travels or sick contacts. Time Seen by Provider: 11/23/18 09:23 Chief Complaint (Nursing): ENT Problem History Per: Patient History/Exam Limitations: no limitations Onset/Duration Of Symptoms: Days Current Symptoms Are (Timing): Still Present Sick Contacts (Context): None Associated Symptoms: Fever, Sore Throat, Cough. denies: Neck Pain, Nasal Congestion, Nausea, Vomiting, Diarrhea Ear Symptoms: Bilateral: None Past Medical History Reviewed: Historical Data, Nursing Documentation, Vital Signs Vital Signs: Last Vital Signs Temp 99.7 F H 11/23/18 09:07 Pulse 107 H 11/23/18 09:07 Resp 20 11/23/18 09:07 BP 159/88 H 11/23/18 09:07 Pulse Ox 95 11/23/18 09:07 Primary Care Provider: FAMILY PROVIDER,NO - Medical History PMH: Asthma, Depression, HTN Denies: Diabetes, Hepatitis, HIV, Chronic Kidney Disease, Seizures, Sexually Transmitted Disease Surgical History: No Surg Hx - [facility] Procedures GROUP PSYCHOTHERAPY (02/22/16) INDIVIDUAL PSYCHOTHERAPY, SUPPORTIVE (02/22/16) INTRODUCTION OF SERUM/TOX/VACCINE INTO MUSCLE, PERC APPROACH (10/31/15) MEDICATION MANAGEMENT (02/22/16) Family History: States: No Known Family Hx - Social History Hx Tobacco Use: No Hx Alcohol Use: No Hx Substance Use: No - Immunization History Hx Tetanus Toxoid Vaccination: No Hx Influenza Vaccination: No Hx Pneumococcal Vaccination: Yes Review Of Systems Except As Marked, All Systems Reviewed And Found Negative. Constitutional: Positive for: Fever ENT: Positive for: Throat Pain. Negative for: Nose Discharge, Nose Congestion Respiratory: Positive for: Cough. Negative for: Shortness of Breath Gastrointestinal: Negative for: Nausea, Vomiting, Diarrhea Musculoskeletal: Negative for: Neck Pain Neurological: Negative for: Headache Physical Exam - Physical Exam Appears: Non-toxic, No Acute Distress, Other (morbidly obese, no muffled voice ) Skin: Warm, Dry Head: Normacephalic Eye(s): bilateral: PERRL, EOMI, Other (conjunctiva clear) Ear(s): Bilateral: Normal Nose: Normal Oral Mucosa: Moist Throat: Erythema, No Exudate, Other (enlarged tonsils ) Neck: Supple Lymphatic: Adenopathy (anterior cervical adenopathy, right greater than left) Chest: Symmetrical Cardiovascular: Rhythm Regular, No Murmur Respiratory: No Rales, No Rhonchi, No Wheezing, Other (Good air movement, Lungs CTA bilaterally) Extremity: Bilateral: Atraumatic, Normal Color And Temperature, Normal ROM Neurological/Psych: Oriented x3, Normal Speech, Normal Motor, Normal Sensation Gait: Steady ED Course And Treatment O2 Sat by Pulse Oximetry: 95 (RA) Pulse Ox Interpretation: Normal Medical Decision Making Medical Decision Making: Plan - Decadron 10mg IM - Motrin 800mg PO - Rapid Strep - Throat cultures Patient states feeling better and would like to go home. Patient is very well appearing and non-toxic. Vital signs are stable. I discussed the results of the work-up, diagnosis and treatment. Written discharge instructions were provided to patient. Additional verbal instructions were given and discussed with patient. We discussed the importance of follow up with PCP/consultants. I also reiterated reasons to immediately return to the ER including: worsening in current symptoms and/or new, continued, or concerning symptoms. Pt understood and agreed. Disposition Counseled Patient/Family Regarding: Studies Performed, Diagnosis, Need For Followup, Rx Given - Disposition Disposition: HOME/ ROUTINE Disposition Time: 11:19 Condition: STABLE Additional Instructions: REMEDIOS GALVAN, thank you for letting us take care of you today. Your provider was Saray Taylor MD and you were treated for COUGHING/THROAT PAIN. The emergency medical care you received today was directed at your acute symptoms. If you were prescribed any medication, please fill it and take as directed. It may take several days for your symptoms to resolve. Return to the Emergency Department if your symptoms worsen, do not improve, or if you have any other problems. Please contact your doctor in 2 days for a follow up appointment. Bring any paperwork you were given at discharge with you along with any medications you are taking to your follow up visit. Our treatment cannot replace ongoing medical care by a primary care provider outside of the emergency department. Thank you for allowing the [facility] team to be part of your care today. You had a throat culture: It will take several days for the results, if any change in treatment is needed we will contact you. Prescriptions: Ibuprofen [Motrin Tab] 800 mg PO TID PRN #30 tab PRN Reason: Pain, Moderate (4-7) Penicillin VK [Penicillin VK Tab] 500 mg PO BID #20 tab Instructions: Sore Throat, Adult (DC) Forms: [facility] (Latvian) - POA Present On Arrival: None - Clinical Impression Clinical Impression: Pharyngitis - Scribe Statement The provider has reviewed the documentation as recorded by the Scribe Taylor Scott All medical record entries made by the Theresaibpablito were at my direction and personally dictated by me. I have reviewed the chart and agree that the record accurately reflects my personal performance of the history, physical exam, medical decision making, and the department course for this patient. I have also personally directed, reviewed, and agree with the discharge instructions and disposition.
== END 2018-11-23 11:30 | disposition home or self-care (01) ==
LOC: C.ER 09:01
DX: J02.9 Acute pharyngitis, unspecified (principal)
CPT/HCPCS: 87070; 87430; 96372; 99282; J1100